=== PATIENT | male | born 1980 | race American Indian/Alaskan Native ===

== ENCOUNTER 2020-12-02 14:02 | Inpatient (IN) | payer OTHER ==
[2020-12-02 16:56] LABS: Basophils % (Auto) 0.3 % (0.0-1.8); Hematocrit 46.5 % (35.5-45.6); Hemoglobin 15.3 gm/dl (11.8-15.2); Lymphocytes # (Auto) 0.6 K/mm3 (1.2-5.4); Lymphocytes % (Auto) 4.2 % (13.4-35.0); Mean Corpuscular HGB Conc 33 % (32-34); Mean Corpuscular Volume 95 fl (84-94); Monocytes # (Auto) 0.8 K/mm3 (0.0-0.8); Monocytes % (Auto) 5.5 % (0.0-7.3); Platelet Count 279 K/mm3 (140-440); Red Cell Distribution Width 16.2 % (13.2-15.2)
[2020-12-02 16:57] LABS: Alanine Aminotransferase 66 units/L (7-56); Albumin 5.3 g/dL (3.9-5); BUN/Creatinine Ratio 9; Blood Urea Nitrogen 9 mg/dL (9-20); Calcium 10.9 mg/dL (8.4-10.2); Hemolysis Index 7
[2020-12-02] MEDS ORDERED: MORPHINE 4 MG/1 ML INJ IV ONE (20:11)
[2020-12-02] MEDS ORDERED: ONDANSETRON 4 MG/2 ML INJ IV ONE (20:11)
[2020-12-02] MEDS ORDERED: SODIUM CHLORIDE 0.9% 1000 ML 1,000 ML IV ONE (20:13)
--- NOTE | 2020-12-02 20:19 | Emergency Department Report ---
ED General Adult HPI - General Chief complaint: Abdominal Pain Stated complaint: PANCREATITIS Time Seen by Provider: 12/02/20 20:02 Source: patient Mode of arrival: Wheelchair Limitations: No Limitations - History of Present Illness Initial comments: 40-year-old male patient with history of recurrent pancreatitis presents to the emergency department with complaints of epigastric abdominal pain radiating to his back starting yesterday. Patient states symptoms are reminiscent of prior pancreatitis flareups requiring hospitalization. Patient endorses frequent alcohol consumption and admits that his alcohol intake has increased in recent weeks due to a recent in the family. His last alcohol ingestion was 2 days ago. Patient has never required hospitalization for alcohol withdrawal/delirium tremens. No medications prior to arrival. Denies fever, chills, nausea, vomiting, diarrhea, black/bloody stools, syncope, chest pain, shortness of breath. Denies all other complaints at this time. Severity scale (0 -10): 10 - Related Data Allergies Allergy/AdvReac Type Severity Reaction Status Date / Time No Known Allergies Allergy Unverified 12/02/20 15:49 ED Review of Systems ROS: Stated complaint: PANCREATITIS Other details as noted in HPI Other: GENERAL: Negative for fever, chills, weight change, anorexia, fatigue. ENT: Negative for ear pain, difficulty hearing, sore throat, nasal congestion, epistaxis. CARDIOVASCULAR: Negative for chest pain, palpitations, lower extremity swelling. PULMONARY: Negative for cough, dyspnea, wheezing, orthopnea, cyanosis. GASTROINTESTINAL: Positive for abdominal pain MUSCULOSKELETAL: Negative for joint pain, joint swelling, myalgias, back pain, neck pain. NEUROLOGICAL: Negative for headache, seizure, syncope, paresthesias, weakness. INTEGUMENTARY: Negative for erythema, rash, diaphoresis, laceration, ecchymosis. HEMATOLOGICAL: Negative for hemoptysis, hematemesis, hematochezia, hematuria. PSYCHIATRIC: Negative for hallucinations, suicidal ideation, homicidal ideation, anxiety, depression. ED Past Medical Hx - Past Medical History Previous Medical History?: Yes Additional medical history: pancreatitis - Surgical History Past Surgical History?: Yes Additional Surgical History: chest surgery for some fat tissue ED Physical Exam - General Limitations: No Limitations - Other Other exam information: General: Awake and alert. No acute distress. Head: Atraumatic, normocephalic. Eyes: EOMI. Pupils are equal and round. Normal sclera and conjunctiva. ENT: Oral mucosa is moist. Normal pharyngeal exam. Neck: Supple. No lymphadenopathy. Pulmonary: No respiratory distress. Clear to auscultation bilaterally. Cardiac: Tachycardic. Pulses are palpable and equal bilaterally. No lower extremity cyanosis or edema. Skin: Warm and dry. No rashes. Abdomen: Soft, non-protuberant. Diffuse abdominal tenderness most pronounced along the epigastric area without guarding, rigidity, or rebound. Bowel sounds are normal. No organomegaly or masses noted. Back: Normal alignment. No CVA tenderness. Extremities: Symmetrical. Full range of motion intact. Neurological: Alert and oriented, appropriately interactive, no focal deficits. Psych: Cooperative. Appropriate mood and affect. Speech is evenly metered. Thoughts are logically construed. ED Course Vital Signs 12/02/20 15:52 Temperature 98.2 F Pulse Rate 110 H Respiratory 20 Rate Blood Pressure 115/78 [Right] O2 Sat by Pulse 100 Oximetry ED Medical Decision Making - Lab Data Result diagrams: 12/02/20 16:14 12/02/20 16:14 - Radiology Data [facility] [address] [place] [address] Cat Scan Report Signed Patient: BELINDA RIVERA MR#: [id number] 06 : 1980 Acct:[id number] Age/Sex: 40 / M ADM Date: 12/02/20 Loc: ED Attending Dr: Ordering Physician: LINDA ZEE Date of Service: 12/02/20 Procedure(s): CT abdomen pelvis w con Accession Number(s): [id number] cc: LINDA ZEE CT ABDOMEN AND PELVIS WITH CONTRAST INDICATION / CLINICAL INFORMATION: elevated lipase/WBC/heart rate/LFT's. TECHNIQUE: Axial CT images were obtained through the abdomen and pelvis after IV contrast. All CT scans at this location are performed using CT dose reduction for ALARA by means of automated exposure control. COMPARISON: None available. FINDINGS: LOWER CHEST: No significant abnormality. LIVER: Scattered subcentimeter hypodensities are too small to characterize but likely represent cysts. GALLBLADDER: No significant abnormality. BILE DUCTS: No significant abnormality. PANCREAS: There is peripancreatic stranding without fluid collection or evid ence of necrosis. SPLEEN: No significant abnormality. ADRENALS: No significant abnormality. RIGHT KIDNEY / URETER: No significant abnormality. LEFT KIDNEY / URETER: No significant abnormality. STOMACH / SMALL BOWEL: No significant abnormality. COLON: No significant abnormality. APPENDIX: No significant abnormality. PERITONEUM: No free fluid. No free air. No fluid collection. LYMPH NODES: No significant adenopathy. AORTA / ARTERIES: Mild atherosclerotic calcification without acute abnormality. IVC / VEINS: No significant abnormality. URINARY BLADDER: No significant abnormality. REPRODUCTIVE ORGANS: No significant abnormality. ADDITIONAL FINDINGS: No significant abnormality SKELETAL SYSTEM: No significant abnormality. IMPRESSION: 1. Acute interstitial edematous pancreatitis. No peripancreatic fluid collection or necrosis. Signer Name: Haroon Camacho MD Signed: 12/02/2020 9:09 PM Workstation Name: [id number] Transcribed By: ISAIAH Dictated By: HAROON CAMACHO MD Electronically Authenticated By: HAROON CAMACHO MD Signed Date/Time: 12/02/202108 DD/ 04 TD/TT: - Medical Decision Making Differential diagnosis including but not limited to: pancreatitis, abscess, necrosis, cholecystitis, cholelithiasis, aortic aneurysm/dissection, alcohol withdrawal, delirium tremens, dehydration, electrolyte malady, hypoglycemia Patient with history of alcohol use presents to the emergency department with symptoms reminiscent of prior pancreatitis flareups. Tachycardic on arrival. Given IV fluids. Kept NPO. Labs show elevated white blood cell count of 14,000, lipase of 630. CT of the abdomen/pelvis without evidence of necrosis or abscess. Blood alcohol levels undetectable. No clinical evidence to suggest delirium tremens. Patient will be admitted to the hospital for IV hydration, bowel rest, and analgesia. Case discussed with hospitalist, who agrees to admit . Patient expressed understanding and is agreeable to plan of care. Critical care attestation.: If time is entered above; I have spent that time in minutes in the direct care of this critically ill patient, excluding procedure time. ED Disposition Clinical Impression: Acute pancreatitis Qualifiers: Pancreatitis type: alcohol induced Acute pancreatitis complication: unspecified Qualified Code(s): K85.20 - Alcohol induced acute pancreatitis without necrosis or infection Disposition: OP ADMIT IP TO THIS HOSP Is pt being admited?: Yes Does the pt Need Aspirin: No Condition: Serious Time of Disposition: 21:42
--- NOTE | 2020-12-02 21:13 | Cat Scan Report ---
CT ABDOMEN AND PELVIS WITH CONTRAST INDICATION / CLINICAL INFORMATION: elevated lipase/WBC/heart rate/LFT's. TECHNIQUE: Axial CT images were obtained through the abdomen and pelvis after IV contrast. All CT sc ans at this location are performed using CT dose reduction for ALARA by means of automated exposure c ontrol. COMPARISON: None available. FINDINGS: LOWER CHEST: No significant abnormality. LIVER: Scattered subcentimeter hypodensities are too small to characterize but likely represent cysts . GALLBLADDER: No significant abnormality. BILE DUCTS: No significant abnormality. PANCREAS: There is peripancreatic stranding without fluid collection or evidence of necrosis. SPLEEN: No significant abnormality. ADRENALS: No significant abnormality. RIGHT KIDNEY / URETER: No significant abnormality. LEFT KIDNEY / URETER: No significant abnormality. STOMACH / SMALL BOWEL: No significant abnormality. COLON: No significant abnormality. APPENDIX: No significant abnormality. PERITONEUM: No free fluid. No free air. No fluid collection. LYMPH NODES: No significant adenopathy. AORTA / ARTERIES: Mild atherosclerotic calcification without acute abnormality. IVC / VEINS: No significant abnormality. URINARY BLADDER: No significant abnormality. REPRODUCTIVE ORGANS: No significant abnormality. ADDITIONAL FINDINGS: No significant abnormality SKELETAL SYSTEM: No significant abnormality. IMPRESSION: 1. Acute interstitial edematous pancreatitis. No peripancreatic fluid collection or necrosis. Signer Name: Haoron Camacho MD Signed: 12/02/2020 9:09 PM Workstation Name: [id number]
[2020-12-02] MEDS ORDERED: MORPHINE 2 MG/1 ML INJ IV PRN (22:00)
[2020-12-02] MEDS ORDERED: ALBUTEROL 2.5 MG/3 ML NEBU IH PRN (22:00)
--- NOTE | 2020-12-02 22:08 | History and Physical Report ---
History of Present Illness Date of examination: 12/02/20 Date of admission: 12/02/20 Chief complaint: Abdominal pain History of present illness: 40-year-old male with history of alcohol abuse and recurrent pancreatitis was brought to the emergency room because of epigastric abdominal pain radiating to his back starting yesterday. Abdominal pain is sharp 10/10 in the back and the stomach area. Patient states symptoms are reminiscent of prior pancreatitis flareups requiring hospitalization. Patient endorses frequent alcohol consumption and admits that his alcohol intake has increased in recent weeks due to a recent in the family. His last alcohol ingestion was 2 days ago. Patient has never required hospitalization for alcohol withdrawal/delirium tr emens. No medications prior to arrival. Denies fever, chills, nausea, vomiting, diarrhea, black/bloody stools, syncope, chest pain, shortness of breath. In the emergency room patient lipase is 630. CT scan of the abdomen shows acute interstitial edematous pancreatitis. No peripancreatic fluid collection or necrosis. Please do the med rec when available Past History Past Medical History: other (Pancreatitis alcohol abuse) Medications and Allergies Allergies Allergy/AdvReac Type Severity Reaction Status Date / Time No Known Allergies Allergy Unverified 12/02/20 15:49 Active Meds: Active Medications Acetaminophen (Acetaminophen 325 Mg Tab) 650 mg PO Q4H PRN PRN Reason: Pain MILD(1-3)/Fever >100.5/ALVARES Albuterol (Albuterol 2.5 Mg/3 Ml Nebu) 2.5 mg IH Q4HRT PRN PRN Reason: Shortness Of Breath Famotidine (Famotidine 20 Mg/2 Ml Inj) 20 mg IV BID KIARA Heparin Sodium (Porcine) (Heparin 5,000 Unit/1 Ml Vial) 5,000 unit SUB-Q Q8HR KIARA Hydromorphone HCl (Hydromorphone 1 Mg/1 Ml Inj) 0.5 mg IV Q3H PRN PRN Reason: Pain , Severe (7-10) Sodium Chloride (Nacl 0.9% 1000 Ml) 1,000 mls @ 100 mls/hr IV DIRECT KIARA Piperacillin Sod/Tazobactam Sod (Zosyn/Ns 4.5gm/100ml) 4.5 gm in 100 mls @ 200 mls/hr IV Q8H KIARA; Protocol Folic Acid 1 mg/ Multivitamins /Minerals 10 ml/ Thiamine HCl 100 mg/ Sodium Chloride 1,000 mls @ 125 mls/hr IV .BY DURATION KIARA Sodium Chloride (Nacl 0.9% 1000 Ml) 1,000 mls @ 125 mls/hr IV .BY DURATION KIARA Morphine Sulfate (Morphine 2 Mg/1 Ml Inj) 2 mg IV Q4H PRN PRN Reason: Pain, Moderate (4-6) Ondansetron HCl (Ondansetron 4 Mg/2 Ml Inj) 4 mg IV Q8H PRN PRN Reason: Nausea And Vomiting Sodium Chloride (Sodium Chloride 0.9% 10 Ml Flush Syringe) 10 ml IV BID KIARA Sodium Chloride (Sodium Chloride 0.9% 10 Ml Flush Syringe) 10 ml IV PRN PRN PRN Reason: LINE FLUSH Review of Systems Gastrointestinal: abdominal pain, other Musculoskeletal: low back pain Exam - Constitutional Vitals: Temp Pulse Resp BP Pulse Ox 98.2 F 110 H 20 115/78 100 12/02/20 15:52 12/02/20 15:52 12/02/20 15:52 12/02/20 15:52 12/02/20 15:52 General appearance: Present: no acute distress, well-nourished - EENT Eyes: Present: PERRL ENT: hearing intact, clear oral mucosa - Neck Neck: Present: supple, normal ROM - Respiratory Respiratory effort: normal Respiratory: bilateral: CTA - Cardiovascular Heart Sounds: Present: S1 & S2. Absent: rub, click - Extremities Extremities: pulses symmetrical, No edema Peripheral Pulses: within normal limits - Abdominal General gastrointestinal: Present: soft, tender, non-distended, normal bowel sounds, other (iffuse abdominal tenderness most pronounced along the epigastric area without guarding, rigidity, or rebound) Male genitourinary: Present: normal - Integumentary Integumentary: Present: clear, warm, dry - Musculoskeletal Musculoskeletal: gait normal, strength equal bilaterally - Psychiatric Psychiatric: appropriate mood/affect, intact judgment & insight - Neurologic Neurologic: CNII-XII intact, moves all extremities Results - Labs CBC & Chem 7: 12/02/20 16:14 12/02/20 16:14 Labs: Laboratory Last Values WBC 14.1 K/mm3 (4.5-11.0) H 12/02/20 16:14 RBC 4.90 M/mm3 (3.65-5.03) 12/02/20 16:14 Hgb 15.3 gm/dl (11.8-15.2) H 12/02/20 16:14 Hct 46.5 % (35.5-45.6) H 12/02/20 16:14 MCV 95 fl (84-94) H 12/02/20 16:14 MCH 31 pg (28-32) 12/02/20 16:14 MCHC 33 % (32-34) 12/02/20 16:14 RDW 16.2 % (13.2-15.2) H 12/02/20 16:14 Plt Count 279 K/mm3 (140-440) 12/02/20 16:14 Lymph % (Auto) 4.2 % (13.4-35.0) L 12/02/20 16:14 Smith % (Auto) 5.5 % (0.0-7.3) 12/02/20 16:14 Eos % (Auto) 0.0 % (0.0-4.3) 12/02/20 16:14 Baso % (Auto) 0.3 % (0.0-1.8) 12/02/20 16:14 Lymph # (Auto) 0.6 K/mm3 (1.2-5.4) L 12/02/20 16:14 Smith # (Auto) 0.8 K/mm3 (0.0-0.8) 12/02/20 16:14 Eos # (Auto) 0.0 K/mm3 (0.0-0.4) 12/02/20 16:14 Baso # (Auto) 0.0 K/mm3 (0.0-0.1) 12/02/20 16:14 Seg Neutrophils % 90.0 % (40.0-70.0) H 12/02/20 16:14 Seg Neutrophils # 12.7 K/mm3 (1.8-7.7) H 12/02/20 16:14 Sodium 142 mmol/L (137-145) 12/02/20 16:14 Potassium 3.8 mmol/L (3.6-5.0) 12/02/20 16:14 Chloride 101.9 mmol/L (98-107) 12/02/20 16:14 Carbon Dioxide 22 mmol/L (22-30) 12/02/20 16:14 Anion Gap 22 mmol/L 12/02/20 16:14 BUN 9 mg/dL (9-20) 12/02/20 16:14 Creatinine 1.0 mg/dL (0.8-1.3) 12/02/20 16:14 Estimated GFR > 60 ml/min 12/02/20 16:14 BUN/Creatinine Ratio 9 % 12/02/20 16:14 Glucose 174 mg/dL (75-100) H 12/02/20 16:14 Calcium 10.9 mg/dL (8.4-10.2) H 12/02/20 16:14 Phosphorus 3.10 mg/dL (2.5-4.5) 12/02/20 20:11 Magnesium 2.60 mg/dL (1.7-2.3) H 12/02/20 20:11 Total Bilirubin 0.90 mg/dL (0.1-1.2) 12/02/20 16:14 AST 47 units/L (5-40) H 12/02/20 16:14 ALT 66 units/L (7-56) H 12/02/20 16:14 Alkaline Phosphatase 82 units/L (35-129) 12/02/20 16:14 Total Protein 8.5 g/dL (6.3-8.2) H 12/02/20 16:14 Albumin 5.3 g/dL (3.9-5) H 12/02/20 16:14 Albumin/Globulin Ratio 1.7 % 12/02/20 16:14 Lipase 630 units/L (13-60) H 12/02/20 16:14 Plasma/Serum Alcohol < 0.01 % (0-0.07) 12/02/20 20:11 - Imaging and Cardiology CT scan - abdomen: report reviewed Assessment and Plan VTE prophylaxis?: Chemical Plan of care discussed with patient/family: Yes - Patient Problems (1) Acute pancreatitis Current Visit: Yes Status: Acute Qualifiers: Pancreatitis type: alcohol induced Acute pancreatitis complication: unspecified Qualified Code(s): K85.20 - Alcohol induced acute pancreatitis without necrosis or infection Plan to address problem: Admit the patient to the medical floor. Nothing by mouth. Normal saline at the rate of 100 cc/h. Pepcid 20 mg IV every 12 hours. Zofran 4 mg IV every 6 hours as needed. Morphine 2 mg IV every 4 hours as needed. Will consult GI for evaluation. Recheck CBC CMP in the morning (2) Alcohol abuse Current Visit: Yes Status: Acute Plan to address problem: We counseled the patient regarding quit drinking. We put the patient on banana bag thiamine and folic acid. (3) DVT prophylaxis Current Visit: Yes Status: Acute Plan to address problem: Heparin 5000 units subcu every 8 hours for DVT prophylaxis. Pepcid 20 mg IV every 12 hours for GI prophylaxis. Patient is a full code
[2020-12-02] MEDS ORDERED: 1: FOLIC ACID 1 MG, MULTIPLE VITAMIN INJ, ADULT 10 ML, THIAMINE 100 MG in SODIUM CHLORID IV SCH (23:00)
[2020-12-02] MEDS: HEPARIN 5,000 UNIT/1 ML VIAL SUB-Q SCH (23:34)
[2020-12-02] MEDS: FAMOTIDINE 20 MG/2 ML INJ IV SCH (23:34)
[2020-12-02] MEDS: PIPERACIL/TAZOBACTA 4.5/NS 100 4.5 GM/100 ML VIAL IV SCH (23:34)
[2020-12-02] MEDS: HYDROmorphone 1 MG/1 ML INJ IV PRN (23:45)
[2020-12-03] MEDS: THIAMINE 100 MG, FOLIC ACID 1 MG, MULTIPLE VITAMIN INJ, ADULT 10 ML in SODIUM CHLORIDE ... IV SCH ×2 (01:18→22:05)
[2020-12-03] MEDS: HYDROmorphone 1 MG/1 ML INJ IV PRN ×3 (03:20→22:05)
[2020-12-03 05:20] LABS: Hematocrit 41.2 % (35.5-45.6); Hemoglobin 13.3 gm/dl (11.8-15.2); Mean Corpuscular HGB Conc 32 % (32-34); Mean Corpuscular Volume 95 fl (84-94); Platelet Count 242 K/mm3 (140-440); Red Blood Count 4.33 M/mm3 (3.65-5.03); Red Cell Distribution Width 15.8 % (13.2-15.2)
[2020-12-03 05:32] LABS: Alanine Aminotransferase 48 units/L (7-56); Albumin 4.3 g/dL (3.9-5); BUN/Creatinine Ratio 9; Blood Urea Nitrogen 8 mg/dL (9-20); Calcium 8.6 mg/dL (8.4-10.2); Hemolysis Index 10
[2020-12-03] MEDS: HEPARIN 5,000 UNIT/1 ML VIAL SUB-Q SCH ×3 (05:50→22:06)
[2020-12-03 06:05] LABS: Total Cells Counted 100
[2020-12-03 06:06] LABS: Anisocytosis 1+; Platelet Estimate Consistent w Auto; Stomatocytes 1+
[2020-12-03] MEDS: PIPERACIL/TAZOBACTA 4.5/NS 100 4.5 GM/100 ML VIAL IV SCH ×3 (08:14→23:43)
[2020-12-03] MEDS: ACETAMINOPHEN 325 MG TAB PO PRN ×2 (09:27→18:55)
[2020-12-03] MEDS: FAMOTIDINE 20 MG/2 ML INJ IV SCH ×2 (09:31→22:06)
--- NOTE | 2020-12-03 11:45 | Ultrasound Report ---
ULTRASOUND ABDOMEN, COMPLETE INDICATION: Acute pancreatitis/rule out gallbladder disease COMPARISON: CT one day prior. FINDINGS: Pancreas: Normal. Abdominal Aorta: Normal. IVC: Normal. Liver: Normal. Gallbladder: Normal. Bile ducts: Normal. Common Bile Duct measures 3-4 mm. Right Kidney: Normal. Left Kidney: Normal. Spleen: Normal. Free fluid: None. Additional Findings: None. IMPRESSION: 1. No sonographic abnormality of the abdomen. Signer Name: Tyrese Nazario MD Signed: 12/03/2020 11:40 AM Workstation Name: [id number]
--- NOTE | 2020-12-03 12:37 | Gastroenterology Consultation ---
History of Present Illness - Reason for Consult Consult date: 12/03/20 pancreatitis Requesting physician: BERE DOSS - History of Present Illness This is a 40 yo male with pmh of alcohol abuse and prior pancreatitis presenting to the ED for epigastric pain. Reports having epigastric pain yesterday morning radiating to his back associated with one episode fo vomiting. He had recent family with his cousin last week and had several days of alcohol use with last intake on Wednesday. No blood in the stools, melena, or diarrhea. He states he had two hospitalizations in the past at [place] and [facility] for pancreatitis. This feels similar to his prior attacks. Was told to quit alcohol. In the emergency room patient lipase is 630. CT scan of the abdomen shows acute interstitial edematous pancreatitis. No peripancreatic fluid collection or necrosis. Medication list reviewed. Past History Past Medical History: other (Pancreatitis alcohol abuse) Medications and Allergies Allergies Allergy/AdvReac Type Severity Reaction Status Date / Time No Known Allergies Allergy Verified 12/02/20 22:11 Active Meds: Active Medications Acetaminophen (Acetaminophen 325 Mg Tab) 650 mg PO Q4H PRN PRN Reason: Pain MILD(1-3)/Fever >100.5/ALVARES Last Admin: 12/03/20 09:27 Dose: 650 mg Documented by: Albuterol (Albuterol 2.5 Mg/3 Ml Nebu) 2.5 mg IH Q4HRT PRN PRN Reason: Shortness Of Breath Famotidine (Famotidine 20 Mg/2 Ml Inj) 20 mg IV BID [facility] Last Admin: 12/03/20 09:31 Dose: 20 mg Documented by: Heparin Sodium (Porcine) (Heparin 5,000 Unit/1 Ml Vial) 5,000 unit SUB-Q Q8HR [facility] Last Admin: 12/03/20 05:50 Dose: 5,000 unit Documented by: Hydromorphone HCl (Hydromorphone 1 Mg/1 Ml Inj) 0.5 mg IV Q3H PRN PRN Reason: Pain , Severe (7-10) Last Admin: 12/03/20 05:50 Dose: 0.5 mg Documented by: Sodium Chloride (Nacl 0.9% 1000 Ml) 1,000 mls @ 100 mls/hr IV DIRECT KIARA Piperacillin Sod/Tazobactam Sod (Zosyn/Ns 4.5gm/100ml) 4.5 gm in 100 mls @ 200 mls/hr IV Q8H [facility]; Protocol Last Admin: 12/03/20 08:14 Dose: 200 mls/hr Documented by: Thiamine HCl 100 mg/ Folic Acid 1 mg/ Multivitamins/Minerals 10 ml/ Sodium Chloride 1,011.2 mls @ 125 mls/hr IV Q24H [facility] Last Admin: 12/03/20 01:18 Dose: 125 mls/hr Documented by: Morphine Sulfate (Morphine 2 Mg/1 Ml Inj) 2 mg IV Q4H PRN PRN Reason: Pain, Moderate (4-6) Ondansetron HCl (Ondansetron 4 Mg/2 Ml Inj) 4 mg IV Q8H PRN PRN Reason: Nausea And Vomiting Sodium Chloride (Sodium Chloride 0.9% 10 Ml Flush Syringe) 10 ml IV BID [facility] Last Admin: 12/02/20 23:45 Dose: 10 ml Documented by: Sodium Chloride (Sodium Chloride 0.9% 10 Ml Flush Syringe) 10 ml IV PRN PRN PRN Reason: LINE FLUSH Review of Systems - Review of Systems All systems: negative Constitutional: no weight loss, no weight gain, no fever, no chills Cardiovascular: no chest pain Gastrointestinal: abdominal pain, nausea, vomiting, no diarrhea, no constipation, no change in bowel habits, no melena, no hematochezia Neurological: weakness Psychiatric: anxiety Endocrine: no cold intolerance Hematologic/Lymphatic: no easy bruising Allergic/Immunologic: no wheezing Exam - Constitutional Vital Signs: Temp Pulse Resp BP Pulse Ox 98.2 F 110 H 20 115/78 100 12/02/20 15:52 12/02/20 15:52 12/02/20 15:52 12/02/20 15:52 12/02/20 21:51 General appearance: no acute distress - EENT Eyes: EOM intact ENT: hearing intact - Respiratory Respiratory effort: normal - Cardiovascular Rhythm: regular Heart Sounds: Present: S1 & S2 - Gastrointestinal General gastrointestinal: Present: soft, tender, non-distended, normal bowel sounds - Integumentary Integumentary: Present: clear, warm - Neurologic Neurological: alert and oriented x3 - Psychiatric Psychiatric: appropriate mood/affect - Labs CBC & Chem 7: 12/03/20 03:58 12/03/20 03:58 Lab Results: Laboratory Results - last 24 hr 12/02/20 12/02/20 12/02/20 16:14 16:14 20:11 WBC 14.1 H RBC 4.90 Hgb 15.3 H Hct 46.5 H MCV 95 H MCH 31 MCHC 33 RDW 16.2 H Plt Count 279 Lymph % (Auto) 4.2 L Tift % (Auto) 5.5 Eos % (Auto) 0.0 Baso % (Auto) 0.3 Lymph # (Auto) 0.6 L Tift # (Auto) 0.8 Eos # (Auto) 0.0 Baso # (Auto) 0.0 Add Manual Diff Total Counted Seg Neutrophils % 90.0 H Seg Neuts % (Manual) Lymphocytes % (Manual) Monocytes % (Manual) Nucleated RBC % Seg Neutrophils # 12.7 H Seg Neutrophils # Man Band Neutrophils # Lymphocytes # (Manual) Abs React Lymphs (Man) Monocytes # (Manual) Eosinophils # (Manual) Basophils # (Manual) Metamyelocytes # Myelocytes # Promyelocytes # Blast Cells # WBC Morphology Hypersegmented Neuts Hyposegmented Neuts Hypogranular Neuts Smudge Cells Toxic Granulation Toxic Vacuolation Dohle Bodies Pelger-Huet Anomaly [place] Rods Platelet Estimate Clumped Platelets Plt Clumps, EDTA Large Platelets Giant Platelets Platelet Satelliting Plt Morphology Comment RBC Morphology Dimorphic RBCs Polychromasia Hypochromasia Poikilocytosis Anisocytosis Microcytosis Macrocytosis Spherocytes Pappenheimer Bodies Sickle Cells Target Cells Tear Drop Cells Ovalocytes Stomatocytes Helmet Cells [place] Bodies [place] Rings [place] Cells Bite Cells Crenated Cell Elliptocytes Acanthocytes (Spur) Rouleaux Hemoglobin C Crystals Schistocytes Malaria parasites Yoel Bodies Hem Pathologist Commnt Sodium 142 Potassium 3.8 Chloride 101.9 Carbon Dioxide 22 Anion Gap 22 BUN 9 Creatinine 1.0 Estimated GFR > 60 BUN/Creatinine Ratio 9 Glucose 174 H Calcium 10.9 H Phosphorus 3.10 Magnesium 2.60 H Total Bilirubin 0.90 AST 47 H ALT 66 H Alkaline Phosphatase 82 Total Protein 8.5 H Albumin 5.3 H Albumin/Globulin Ratio 1.7 Lipase 630 H Plasma/Serum Alcohol 12/02/20 12/03/20 12/03/20 20:11 03:58 03:58 WBC 13.9 H RBC 4.33 Hgb 13.3 Hct 41.2 MCV 95 H MCH 31 MCHC 32 RDW 15.8 H Plt Count 242 Lymph % (Auto) Tift % (Auto) Eos % (Auto) Baso % (Auto) Lymph # (Auto) Tift # (Auto) Eos # (Auto) Baso # (Auto) Add Manual Diff Complete Total Counted 100 Seg Neutrophils % Seg Neuts % (Manual) 91.0 H Lymphocytes % (Manual) 3.0 L Monocytes % (Manual) 6.0 Nucleated RBC % Not Reportable Seg Neutrophils # Seg Neutrophils # Man 12.6 H Band Neutrophils # 0.0 Lymphocytes # (Manual) 0.4 L Abs React Lymphs (Man) 0.0 Monocytes # (Manual) 0.8 Eosinophils # (Manual) 0.0 Basophils # (Manual) 0.0 Metamyelocytes # 0.0 Myelocytes # 0.0 Promyelocytes # 0.0 Blast Cells # 0.0 WBC Morphology Not Reportable Hypersegmented Neuts Not Reportable Hyposegmented Neuts Not Reportable Hypogranular Neuts Not Reportable Smudge Cells Not Reportable Toxic Granulation Not Reportable Toxic Vacuolation Not Reportable Dohle Bodies Not Reportable Pelger-Huet Anomaly Not Reportable [place] Rods Not Reportable Platelet Estimate Consistent w auto Clumped Platelets Not Reportable Plt Clumps, EDTA Not Reportable Large Platelets Not Reportable Giant Platelets Not Reportable Platelet Satelliting Not Reportable Plt Morphology Comment Not Reportable RBC Morphology Not Reportable Dimorphic RBCs Not Reportable Polychromasia Not Reportable Hypochromasia Not Reportable Poikilocytosis Not Reportable Anisocytosis 1+ Microcytosis Not Reportable Macrocytosis Not Reportable Spherocytes Not Reportable Pappenheimer Bodies Not Reportable Sickle Cells Not Reportable Target Cells Not Reportable Tear Drop Cells Not Reportable Ovalocytes Not Reportable Stomatocytes 1+ Helmet Cells Not Reportable Dave-[place] Bodies Not Reportable [place] Rings Not Reportable [place] Cells Not Reportable Bite Cells Not Reportable Crenated Cell Not Reportable Elliptocytes Not Reportable Acanthocytes (Spur) Not Reportable Rouleaux Not Reportable Hemoglobin C Crystals Not Reportable Schistocytes Not Reportable Malaria parasites Not Reportable Yoel Bodies Not Reportable Hem Pathologist Commnt No Sodium 139 Potassium 3.5 L Chloride 103.8 Carbon Dioxide 26 Anion Gap 13 BUN 8 L Creatinine 0.9 Estimated GFR > 60 BUN/Creatinine Ratio 9 Glucose 111 H Calcium 8.6 D Phosphorus Magnesium Total Bilirubin 0.90 AST 30 ALT 48 Alkaline Phosphatase 67 Total Protein 7.3 Albumin 4.3 Albumin/Globulin Ratio 1.4 Lipase Plasma/Serum Alcohol < 0.01 - Imaging CT Scan: report reviewed Assessment and Plan This is a 40 yo male with pmh of alcohol abuse and prior pancreatitis admitted with acute pancreatitis. # Acute pancreatitis - likely alcohol induced - no signs of gallstones on CT - abdominal US with no gallstones and normal CBD - initially mild elevation of liver enzymes, likely due to alcohol and trended down. - no signs of necrosis on CT - HD stable. Rec - medical management for pancreatitis - IVF resuscitation - NPO - pain control. - strongly advised on alcohol cessation - monitor for signs of alcohol withdrawal. - Patient Problems (1) Acute pancreatitis Current Visit: Yes Status: Acute Qualifiers: Pancreatitis type: alcohol induced Acute pancreatitis complication: unspecified Qualified Code(s): K85.20 - Alcohol induced acute pancreatitis without necrosis or infection
--- NOTE | 2020-12-03 16:02 | Progress Note ---
Assessment and Plan Assessment and plan: 1) Acute pancreatitis Current Visit: Yes Status: Acute Admit the patient to the medical floor. Nothing by mouth. Normal saline at the rate of 100 cc/h. Pepcid 20 mg IV every 12 hours. Zofran 4 mg IV every 6 hours as needed. Morphine 2 mg IV every 4 hours as needed. Will consult GI for evaluation. Recheck CBC CMP in the morning (2) Alcohol abuse Current Visit: Yes Status: Acute We counseled the patient regarding quit drinking. We put the patient on banana bag thiamine and folic acid. (3) DVT prophylaxis Current Visit: Yes Status: Acute Heparin 5000 units subcu every 8 hours for DVT prophylaxis. Pepcid 20 mg IV every 12 hours for GI prophylaxis. Patient is a full code History Interval history: I have Seen and examined in ICU awaiting bed assignment Patient's chart and medications reviewed No new events reported by the nursing staff Patient was admitted with acute pancreatitis, Probably secondary to alcohol intake Vital signs noted Hospitalist Physical - Constitutional Vitals: Temp Pulse Resp BP Pulse Ox 98.2 F 110 H 20 115/78 100 12/02/20 15:52 12/02/20 15:52 12/02/20 15:52 12/02/20 15:52 12/02/20 21:51 General appearance: Present: no acute distress, well-nourished - EENT Eyes: Present: PERRL, EOM intact - Neck Neck: Present: supple, normal ROM - Respiratory Respiratory effort: normal Respiratory: bilateral: diminished, negative: rales, rhonchi, wheezing - Cardiovascular Rhythm: regular Heart Sounds: Present: S1 & S2 - Extremities Extremities: no ischemia, No edema - Abdominal General gastrointestinal: soft, non-tender, non-distended, distended, normal bowel sounds - Integumentary Integumentary: Present: clear, warm - Psychiatric Psychiatric: appropriate mood/affect, cooperative - Neurologic Neurologic: CNII-XII intact, moves all extremities Results - Labs CBC & Chem 7: 12/03/20 03:58 12/03/20 03:58 Labs: Laboratory Last Values WBC 13.9 K/mm3 (4.5-11.0) H 12/03/20 03:58 RBC 4.33 M/mm3 (3.65-5.03) 12/03/20 03:58 Hgb 13.3 gm/dl (11.8-15.2) 12/03/20 03:58 Hct 41.2 % (35.5-45.6) 12/03/20 03:58 MCV 95 fl (84-94) H 12/03/20 03:58 MCH 31 pg (28-32) 12/03/20 03:58 MCHC 32 % (32-34) 12/03/20 03:58 RDW 15.8 % (13.2-15.2) H 12/03/20 03:58 Plt Count 242 K/mm3 (140-440) 12/03/20 03:58 Lymph % (Auto) 4.2 % (13.4-35.0) L 12/02/20 16:14 Lucas % (Auto) 5.5 % (0.0-7.3) 12/02/20 16:14 Eos % (Auto) 0.0 % (0.0-4.3) 12/02/20 16:14 Baso % (Auto) 0.3 % (0.0-1.8) 12/02/20 16:14 Lymph # (Auto) 0.6 K/mm3 (1.2-5.4) L 12/02/20 16:14 Lucas # (Auto) 0.8 K/mm3 (0.0-0.8) 12/02/20 16:14 Eos # (Auto) 0.0 K/mm3 (0.0-0.4) 12/02/20 16:14 Baso # (Auto) 0.0 K/mm3 (0.0-0.1) 12/02/20 16:14 Add Manual Diff Complete 12/03/20 03:58 Total Counted 100 12/03/20 03:58 Seg Neutrophils % 90.0 % (40.0-70.0) H 12/02/20 16:14 Seg Neuts % (Manual) 91.0 % (40.0-70.0) H 12/03/20 03:58 Lymphocytes % (Manual) 3.0 % (13.4-35.0) L 12/03/20 03:58 Monocytes % (Manual) 6.0 % (0.0-7.3) 12/03/20 03:58 Nucleated RBC % Not Reportable 12/03/20 03:58 Seg Neutrophils # 12.7 K/mm3 (1.8-7.7) H 12/02/20 16:14 Seg Neutrophils # Man 12.6 K/mm3 (1.8-7.7) H 12/03/20 03:58 Band Neutrophils # 0.0 K/mm3 12/03/20 03:58 Lymphocytes # (Manual) 0.4 K/mm3 (1.2-5.4) L 12/03/20 03:58 Abs React Lymphs (Man) 0.0 K/mm3 12/03/20 03:58 Monocytes # (Manual) 0.8 K/mm3 (0.0-0.8) 12/03/20 03:58 Eosinophils # (Manual) 0.0 K/mm3 (0.0-0.4) 12/03/20 03:58 Basophils # (Manual) 0.0 K/mm3 (0.0-0.1) 12/03/20 03:58 Metamyelocytes # 0.0 K/mm3 12/03/20 03:58 Myelocytes # 0.0 K/mm3 12/03/20 03:58 Promyelocytes # 0.0 K/mm3 12/03/20 03:58 Blast Cells # 0.0 K/mm3 12/03/20 03:58 WBC Morphology Not Reportable 12/03/20 03:58 Hypersegmented Neuts Not Reportable 12/03/20 03:58 Hyposegmented Neuts Not Reportable 12/03/20 03:58 Hypogranular Neuts Not Reportable 12/03/20 03:58 Smudge Cells Not Reportable 12/03/20 03:58 Toxic Granulation Not Reportable 12/03/20 03:58 Toxic Vacuolation Not Reportable 12/03/20 03:58 Dohle Bodies Not Reportable 12/03/20 03:58 Pelger-Huet Anomaly Not Reportable 12/03/20 03:58 Collette Rods Not Reportable 12/03/20 03:58 Platelet Estimate Consistent w auto 12/03/20 03:58 Clumped Platelets Not Reportable 12/03/20 03:58 Plt Clumps, EDTA Not Reportable 12/03/20 03:58 Large Platelets Not Reportable 12/03/20 03:58 Giant Platelets Not Reportable 12/03/20 03:58 Platelet Satelliting Not Reportable 12/03/20 03:58 Plt Morphology Comment Not Reportable 12/03/20 03:58 RBC Morphology Not Reportable 12/03/20 03:58 Dimorphic RBCs Not Reportable 12/03/20 03:58 Polychromasia Not Reportable 12/03/20 03:58 Hypochromasia Not Reportable 12/03/20 03:58 Poikilocytosis Not Reportable 12/03/20 03:58 Anisocytosis 1+ 12/03/20 03:58 Microcytosis Not Reportable 12/03/20 03:58 Macrocytosis Not Reportable 12/03/20 03:58 Spherocytes Not Reportable 12/03/20 03:58 Pappenheimer Bodies Not Reportable 12/03/20 03:58 Sickle Cells Not Reportable 12/03/20 03:58 Target Cells Not Reportable 12/03/20 03:58 Tear Drop Cells Not Reportable 12/03/20 03:58 Ovalocytes Not Reportable 12/03/20 03:58 Stomatocytes 1+ 12/03/20 03:58 Helmet Cells Not Reportable 12/03/20 03:58 [place] Bodies Not Reportable 12/03/20 03:58 [place] Rings Not Reportable 12/03/20 03:58 [place] Cells Not Reportable 12/03/20 03:58 Bite Cells Not Reportable 12/03/20 03:58 Crenated Cell Not Reportable 12/03/20 03:58 Elliptocytes Not Reportable 12/03/20 03:58 Acanthocytes (Spur) Not Reportable 12/03/20 03:58 Rouleaux Not Reportable 12/03/20 03:58 Hemoglobin C Crystals Not Reportable 12/03/20 03:58 Schistocytes Not Reportable 12/03/20 03:58 Malaria parasites Not Reportable 12/03/20 03:58 Yoel Bodies Not Reportable 12/03/20 03:58 Hem Pathologist Commnt No 12/03/20 03:58 Sodium 139 mmol/L (137-145) 12/03/20 03:58 Potassium 3.5 mmol/L (3.6-5.0) L 12/03/20 03:58 Chloride 103.8 mmol/L (98-107) 12/03/20 03:58 Carbon Dioxide 26 mmol/L (22-30) 12/03/20 03:58 Anion Gap 13 mmol/L 12/03/20 03:58 BUN 8 mg/dL (9-20) L 12/03/20 03:58 Creatinine 0.9 mg/dL (0.8-1.3) 12/03/20 03:58 Estimated GFR > 60 ml/min 12/03/20 03:58 BUN/Creatinine Ratio 9 % 12/03/20 03:58 Glucose 111 mg/dL (75-100) H 12/03/20 03:58 Calcium 8.6 mg/dL (8.4-10.2) D 12/03/20 03:58 Phosphorus 3.10 mg/dL (2.5-4.5) 12/02/20 20:11 Magnesium 2.60 mg/dL (1.7-2.3) H 12/02/20 20:11 Total Bilirubin 0.90 mg/dL (0.1-1.2) 12/03/20 03:58 AST 30 units/L (5-40) 12/03/20 03:58 ALT 48 units/L (7-56) 12/03/20 03:58 Alkaline Phosphatase 67 units/L (35-129) 12/03/20 03:58 Total Protein 7.3 g/dL (6.3-8.2) 12/03/20 03:58 Albumin 4.3 g/dL (3.9-5) 12/03/20 03:58 Albumin/Globulin Ratio 1.4 % 12/03/20 03:58 Lipase 630 units/L (13-60) H 12/02/20 16:14 Plasma/Serum Alcohol < 0.01 % (0-0.07) 12/02/20 20:11 Active Medications - Current Medications Current Medications: Generic Name Dose Route Start Last Admin Trade Name Freq PRN Reason Stop Dose Admin Acetaminophen 650 mg 12/02/20 22:00 12/03/20 09:27 Acetaminophen 325 Mg Tab PO 650 mg Q4H PRN Administration Pain MILD(1-3)/Fever >100.5/ALVARES Albuterol 2.5 mg 12/02/20 22:00 Albuterol 2.5 Mg/3 Ml Nebu IH Q4HRT PRN Shortness Of Breath Famotidine 20 mg 12/02/20 22:00 12/03/20 09:31 Famotidine 20 Mg/2 Ml Inj IV 20 mg BID KIARA Administration Heparin Sodium (Porcine) 5,000 unit 12/02/20 22:00 12/03/20 05:50 Heparin 5,000 Unit/1 Ml Vial SUB-Q 5,000 unit Q8HR KIARA Administration Hydromorphone HCl 0.5 mg 12/02/20 22:00 12/03/20 05:50 Hydromorphone 1 Mg/1 Ml Inj IV 0.5 mg Q3H PRN Administration Pain , Severe (7-10) Sodium Chloride 1,000 mls @ 100 mls/hr 12/02/20 22:00 Nacl 0.9% 1000 Ml IV DIRECT KIARA Piperacillin Sod/Tazobactam Sod 4.5 gm in 100 mls @ 200 mls/hr 12/02/20 23:00 12/03/20 15:53 Zosyn/Ns 4.5gm/100ml IV 200 mls/hr Q8H KIARA Administration Protocol Thiamine HCl 100 mg/ Folic 1,011.2 mls @ 125 mls/hr 12/02/20 22:30 12/03/20 01:18 Acid 1 mg/ Multivitamins/ IV 125 mls/hr Minerals 10 ml/ Sodium Q24H KIARA Administration Chloride Morphine Sulfate 2 mg 12/02/20 22:00 Morphine 2 Mg/1 Ml Inj IV Q4H PRN Pain, Moderate (4-6) Ondansetron HCl 4 mg 12/02/20 22:00 Ondansetron 4 Mg/2 Ml Inj IV Q8H PRN Nausea And Vomiting Sodium Chloride 10 ml 12/02/20 22:00 12/03/20 10:40 Sodium Chloride 0.9% 10 Ml Flush Syringe IV 10 ml BID KIARA Administration Sodium Chloride 10 ml 12/02/20 22:00 Sodium Chloride 0.9% 10 Ml Flush Syringe IV PRN PRN LINE FLUSH
[2020-12-03] MEDS: ONDANSETRON 4 MG/2 ML INJ IV PRN (17:30)
[2020-12-03] MEDS: SODIUM CHLORIDE 0.9% 1000 ML 1,000 ML IV SCH (17:30)
[2020-12-04] MEDS: SODIUM CHLORIDE 0.9% 1000 ML 1,000 ML IV SCH ×3 (02:02→20:21)
[2020-12-04] MEDS: HYDROmorphone 1 MG/1 ML INJ IV PRN ×2 (02:02→06:59)
[2020-12-04] MEDS: HEPARIN 5,000 UNIT/1 ML VIAL SUB-Q SCH ×3 (06:55→22:30)
[2020-12-04] MEDS: PIPERACIL/TAZOBACTA 4.5/NS 100 4.5 GM/100 ML VIAL IV SCH ×3 (06:55→23:26)
--- NOTE | 2020-12-04 08:10 | Progress Note ---
Assessment and Plan Assessment and plan: --Acute pancreatitis Current Visit: Yes Status: Acute Well managed with IV fluids, n.p.o. status, IV Protonix Closely monitor transaminases and lipase levels GI evaluation and recommendations noted and appreciated If lipase level and symptoms are improving, may start clear liquids And advance as tolerated --SIRS without infectious process; Current Visit: Yes Status: Acute Tachycardia, leukocytosis, fever Treat underlying cause acute pancreatitis Closely monitor --Chronic alcohol abuse; Current Visit: Yes Status: Acute Thiamine folic acid, IV fluids, multivitamins Strongly advised to quit alcohol intake Recommend alcohol rehabilitation, and alcohol Anonymous support. --Alcoholic hepatitis; present on admission Current Visit: Yes Status: Acute Transaminases trending down GI following, closely monitor --Alcohol withdrawal symptoms; Patient does not have any withdrawal symptoms at this point. Closely monitor, initiate CIWA protocol as needed Again strongly advised to quit alcohol intake --DVT prophylaxis Current Visit: Yes Status: Acute Subcu heparin We will closely monitor patient and adjust management as needed Follow GI evaluation and recommendations 12/04/2020; Patient's LFTs trending down to normal levels today Monitor electrolytes and adjust as needed Closely monitor alcohol withdrawal symptoms Initiate CIWA protocol if needed GI following History Interval history: Seen and examined this morning Patient's chart and medications reviewed No new events reported by the nursing Vital signs noted Hospitalist Physical - Constitutional Vitals: Temp Pulse Resp BP Pulse Ox 99.2 F 70 15 120/82 100 12/03/20 22:34 12/03/20 22:34 12/03/20 22:34 12/03/20 22:34 12/03/20 22:34 General appearance: Present: no acute distress, well-nourished - EENT Eyes: Present: PERRL, EOM intact - Neck Neck: Present: supple, normal ROM - Respiratory Respiratory effort: normal Respiratory: bilateral: diminished, rhonchi, negative: rales, wheezing - Cardiovascular Rhythm: regular Heart Sounds: Present: S1 & S2 - Extremities Extremities: no ischemia, No edema - Abdominal General gastrointestinal: soft, non-tender, non-distended, normal bowel sounds - Integumentary Integumentary: Present: clear, warm - Psychiatric Psychiatric: appropriate mood/affect, cooperative - Neurologic Neurologic: CNII-XII intact, moves all extremities Results - Labs CBC & Chem 7: 12/04/20 08:50 12/05/20 14:04 Labs: Laboratory Last Values WBC 13.9 K/mm3 (4.5-11.0) H 12/03/20 03:58 RBC 4.33 M/mm3 (3.65-5.03) 12/03/20 03:58 Hgb 13.3 gm/dl (11.8-15.2) 12/03/20 03:58 Hct 41.2 % (35.5-45.6) 12/03/20 03:58 MCV 95 fl (84-94) H 12/03/20 03:58 MCH 31 pg (28-32) 12/03/20 03:58 MCHC 32 % (32-34) 12/03/20 03:58 RDW 15.8 % (13.2-15.2) H 12/03/20 03:58 Plt Count 242 K/mm3 (140-440) 12/03/20 03:58 Lymph % (Auto) 4.2 % (13.4-35.0) L 12/02/20 16:14 [place] % (Auto) 5.5 % (0.0-7.3) 12/02/20 16:14 Eos % (Auto) 0.0 % (0.0-4.3) 12/02/20 16:14 Baso % (Auto) 0.3 % (0.0-1.8) 12/02/20 16:14 Lymph # (Auto) 0.6 K/mm3 (1.2-5.4) L 12/02/20 16:14 [place] # (Auto) 0.8 K/mm3 (0.0-0.8) 12/02/20 16:14 Eos # (Auto) 0.0 K/mm3 (0.0-0.4) 12/02/20 16:14 Baso # (Auto) 0.0 K/mm3 (0.0-0.1) 12/02/20 16:14 Add Manual Diff Complete 12/03/20 03:58 Total Counted 100 12/03/20 03:58 Seg Neutrophils % 90.0 % (40.0-70.0) H 12/02/20 16:14 Seg Neuts % (Manual) 91.0 % (40.0-70.0) H 12/03/20 03:58 Lymphocytes % (Manual) 3.0 % (13.4-35.0) L 12/03/20 03:58 Monocytes % (Manual) 6.0 % (0.0-7.3) 12/03/20 03:58 Nucleated RBC % Not Reportable 12/03/20 03:58 Seg Neutrophils # 12.7 K/mm3 (1.8-7.7) H 12/02/20 16:14 Seg Neutrophils # Man 12.6 K/mm3 (1.8-7.7) H 12/03/20 03:58 Band Neutrophils # 0.0 K/mm3 12/03/20 03:58 Lymphocytes # (Manual) 0.4 K/mm3 (1.2-5.4) L 12/03/20 03:58 Abs React Lymphs (Man) 0.0 K/mm3 12/03/20 03:58 Monocytes # (Manual) 0.8 K/mm3 (0.0-0.8) 12/03/20 03:58 Eosinophils # (Manual) 0.0 K/mm3 (0.0-0.4) 12/03/20 03:58 Basophils # (Manual) 0.0 K/mm3 (0.0-0.1) 12/03/20 03:58 Metamyelocytes # 0.0 K/mm3 12/03/20 03:58 Myelocytes # 0.0 K/mm3 12/03/20 03:58 Promyelocytes # 0.0 K/mm3 12/03/20 03:58 Blast Cells # 0.0 K/mm3 12/03/20 03:58 WBC Morphology Not Reportable 12/03/20 03:58 Hypersegmented Neuts Not Reportable 12/03/20 03:58 Hyposegmented Neuts Not Reportable 12/03/20 03:58 Hypogranular Neuts Not Reportable 12/03/20 03:58 Smudge Cells Not Reportable 12/03/20 03:58 Toxic Granulation Not Reportable 12/03/20 03:58 Toxic Vacuolation Not Reportable 12/03/20 03:58 Dohle Bodies Not Reportable 12/03/20 03:58 Pelger-Huet Anomaly Not Reportable 12/03/20 03:58 Collette Rods Not Reportable 12/03/20 03:58 Platelet Estimate Consistent w auto 12/03/20 03:58 Clumped Platelets Not Reportable 12/03/20 03:58 Plt Clumps, EDTA Not Reportable 12/03/20 03:58 Large Platelets Not Reportable 12/03/20 03:58 Giant Platelets Not Reportable 12/03/20 03:58 Platelet Satelliting Not Reportable 12/03/20 03:58 Plt Morphology Comment Not Reportable 12/03/20 03:58 RBC Morphology Not Reportable 12/03/20 03:58 Dimorphic RBCs Not Reportable 12/03/20 03:58 Polychromasia Not Reportable 12/03/20 03:58 Hypochromasia Not Reportable 12/03/20 03:58 Poikilocytosis Not Reportable 12/03/20 03:58 Anisocytosis 1+ 12/03/20 03:58 Microcytosis Not Reportable 12/03/20 03:58 Macrocytosis Not Reportable 12/03/20 03:58 Spherocytes Not Reportable 12/03/20 03:58 Pappenheimer Bodies Not Reportable 12/03/20 03:58 Sickle Cells Not Reportable 12/03/20 03:58 Target Cells Not Reportable 12/03/20 03:58 Tear Drop Cells Not Reportable 12/03/20 03:58 Ovalocytes Not Reportable 12/03/20 03:58 Stomatocytes 1+ 12/03/20 03:58 Helmet Cells Not Reportable 12/03/20 03:58 [place] Bodies Not Reportable 12/03/20 03:58 Apex Rings Not Reportable 12/03/20 03:58 Mark Cells Not Reportable 12/03/20 03:58 Bite Cells Not Reportable 12/03/20 03:58 Crenated Cell Not Reportable 12/03/20 03:58 Elliptocytes Not Reportable 12/03/20 03:58 Acanthocytes (Spur) Not Reportable 12/03/20 03:58 Rouleaux Not Reportable 12/03/20 03:58 Hemoglobin C Crystals Not Reportable 12/03/20 03:58 Schistocytes Not Reportable 12/03/20 03:58 Malaria parasites Not Reportable 12/03/20 03:58 Yoel Bodies Not Reportable 12/03/20 03:58 Hem Pathologist Commnt No 12/03/20 03:58 Sodium 139 mmol/L (137-145) 12/03/20 03:58 Potassium 3.5 mmol/L (3.6-5.0) L 12/03/20 03:58 Chloride 103.8 mmol/L (98-107) 12/03/20 03:58 Carbon Dioxide 26 mmol/L (22-30) 12/03/20 03:58 Anion Gap 13 mmol/L 12/03/20 03:58 BUN 8 mg/dL (9-20) L 12/03/20 03:58 Creatinine 0.9 mg/dL (0.8-1.3) 12/03/20 03:58 Estimated GFR > 60 ml/min 12/03/20 03:58 BUN/Creatinine Ratio 9 % 12/03/20 03:58 Glucose 111 mg/dL (75-100) H 12/03/20 03:58 Calcium 8.6 mg/dL (8.4-10.2) D 12/03/20 03:58 Phosphorus 3.10 mg/dL (2.5-4.5) 12/02/20 20:11 Magnesium 2.60 mg/dL (1.7-2.3) H 12/02/20 20:11 Total Bilirubin 0.90 mg/dL (0.1-1.2) 12/03/20 03:58 AST 30 units/L (5-40) 12/03/20 03:58 ALT 48 units/L (7-56) 12/03/20 03:58 Alkaline Phosphatase 67 units/L (35-129) 12/03/20 03:58 Total Protein 7.3 g/dL (6.3-8.2) 12/03/20 03:58 Albumin 4.3 g/dL (3.9-5) 12/03/20 03:58 Albumin/Globulin Ratio 1.4 % 12/03/20 03:58 Lipase 630 units/L (13-60) H 12/02/20 16:14 Plasma/Serum Alcohol < 0.01 % (0-0.07) 12/02/20 20:11 [place]/IV: Voiding Method Toilet Active Medications - Current Medications Current Medications: Generic Name Dose Route Start Last Admin Trade Name Freq PRN Reason Stop Dose Admin Acetaminophen 650 mg 12/02/20 22:00 12/03/20 18:55 Acetaminophen 325 Mg Tab PO 650 mg Q4H PRN Administration Pain MILD(1-3)/Fever >100.5/ALVARES Albuterol 2.5 mg 12/02/20 22:00 Albuterol 2.5 Mg/3 Ml Nebu IH Q4HRT PRN Shortness Of Breath Famotidine 20 mg 12/02/20 22:00 12/03/20 22:06 Famotidine 20 Mg/2 Ml Inj IV 20 mg BID KIARA Administration Heparin Sodium (Porcine) 5,000 unit 12/02/20 22:00 12/04/20 06:55 Heparin 5,000 Unit/1 Ml Vial SUB-Q 5,000 unit Q8HR KIARA Administration Hydromorphone HCl 0.5 mg 12/02/20 22:00 12/04/20 06:59 Hydromorphone 1 Mg/1 Ml Inj IV 0.5 mg Q3H PRN Administration Pain , Severe (7-10) Sodium Chloride 1,000 mls @ 100 mls/hr 12/02/20 22:00 12/04/20 06:56 Nacl 0.9% 1000 Ml IV 100 mls/hr DIRECT KIARA Administration Piperacillin Sod/Tazobactam Sod 4.5 gm in 100 mls @ 200 mls/hr 12/02/20 23:00 12/04/20 07:52 Zosyn/Ns 4.5gm/100ml IV Infused Q8H KIARA Infusion Protocol Thiamine HCl 100 mg/ Folic 1,011.2 mls @ 125 mls/hr 12/02/20 22:30 12/04/20 06:49 Acid 1 mg/ Multivitamins/ IV Infused Minerals 10 ml/ Sodium Q24H KIARA Infusion Chloride Morphine Sulfate 2 mg 12/02/20 22:00 Morphine 2 Mg/1 Ml Inj IV Q4H PRN Pain, Moderate (4-6) Ondansetron HCl 4 mg 12/02/20 22:00 12/03/20 17:30 Ondansetron 4 Mg/2 Ml Inj IV 4 mg Q8H PRN Administration Nausea And Vomiting Sodium Chloride 10 ml 12/02/20 22:00 12/03/20 22:10 Sodium Chloride 0.9% 10 Ml Flush Syringe IV 10 ml BID KIARA Administration Sodium Chloride 10 ml 12/02/20 22:00 Sodium Chloride 0.9% 10 Ml Flush Syringe IV PRN PRN LINE FLUSH
[2020-12-04] MEDS ORDERED: LORazepam 2 MG/ML VIAL IV PRN (08:30)
[2020-12-04] MEDS ORDERED: LORazepam 2 MG TAB PO PRN (09:00)
[2020-12-04 09:04] LABS: Hematocrit 36.2 % (35.5-45.6); Hemoglobin 12.1 gm/dl (11.8-15.2); Mean Corpuscular HGB Conc 33 % (32-34); Mean Corpuscular Volume 95 fl (84-94); Platelet Count 186 K/mm3 (140-440); Red Blood Count 3.82 M/mm3 (3.65-5.03); Red Cell Distribution Width 15.1 % (13.2-15.2)
[2020-12-04 10:04] LABS: Blood Urea Nitrogen 6 mg/dL (9-20); Calcium 8.3 mg/dL (8.4-10.2); Hemolysis Index 4
[2020-12-04 10:09] LABS: BUN/Creatinine Ratio 9
[2020-12-04] MEDS: ONDANSETRON 4 MG/2 ML INJ IV PRN (10:33)
[2020-12-04] MEDS: FAMOTIDINE 20 MG/2 ML INJ IV SCH ×2 (10:34→22:31)
[2020-12-04] MEDS: oxyCODONE /ACETAMINOPHEN 5-325MG TAB PO PRN ×2 (12:24→20:20)
--- NOTE | 2020-12-04 12:24 | Gastroenterology Progress Note ---
Assessment and Plan This is a 40 yo male with pmh of alcohol abuse and prior pancreatitis admitted with acute pancreatitis. # Acute pancreatitis - likely alcohol induced - no signs of gallstones on CT - abdominal US with no gallstones and normal CBD - initially mild elevation of liver enzymes, likely due to alcohol and trended down. - no signs of necrosis on CT - HD stable. - lipase trending down to 400s from 600s - CRP at 6 - Hct trending down with IVF. Rec - medical management for pancreatitis - IVF resuscitation - trial of clear liquids today. - pain control. - strongly advised on alcohol cessation - monitor for signs of alcohol withdrawal. - Patient Problems (1) Acute pancreatitis Current Visit: Yes Status: Acute Qualifiers: Pancreatitis type: alcohol induced Acute pancreatitis complication: unsp ecified Qualified Code(s): K85.20 - Alcohol induced acute pancreatitis without necrosis or infection Subjective Date of service: 12/04/20 Interval history: Patient states his back pain is better but continues to have cramping abdominal pain. No nausea/vomiting. Objective - Constitutional Vitals: Temp Pulse Resp BP Pulse Ox 98.3 F 64 18 116/83 98 12/04/20 05:52 12/04/20 05:52 12/04/20 05:52 12/04/20 05:52 12/04/20 05:52 General appearance: no acute distress - EENT Eyes: EOM intact ENT: hearing intact - Respiratory Respiratory effort: normal - Cardiovascular Rhythm: regular Heart Sounds: Present: S1 & S2 - Gastrointestinal General gastrointestinal: Present: soft, tender, non-distended, normal bowel sounds - Integumentary Integumentary: Present: clear, warm - Neurologic Neurological: alert and oriented x3 - Labs CBC & Chem 7: 12/04/20 08:50 12/04/20 08:50 Labs: Laboratory Results - last 24 hr 12/04/20 12/04/20 12/04/20 08:50 08:50 08:50 WBC 13.1 H RBC 3.82 Hgb 12.1 Hct 36.2 MCV 95 H MCH 32 MCHC 33 RDW 15.1 Plt Count 186 Sodium 135 L Potassium 3.4 L Chloride 101.5 Carbon Dioxide 20 L Anion Gap 17 BUN 6 L Creatinine 0.7 L Estimated GFR > 60 BUN/Creatinine Ratio 9 Glucose 75 Calcium 8.3 L Phosphorus 1.90 L D Magnesium 2.20 C-Reactive Protein 6.70 H Lipase 487 H
[2020-12-04] MEDS: LORazepam 2 MG/ML VIAL IV PRN (22:30)
[2020-12-04] MEDS: THIAMINE 100 MG, FOLIC ACID 1 MG, MULTIPLE VITAMIN INJ, ADULT 10 ML in SODIUM CHLORIDE ... IV SCH (23:22)
[2020-12-05] MEDS: LORazepam 2 MG/ML VIAL IV PRN (04:16)
[2020-12-05] MEDS: HEPARIN 5,000 UNIT/1 ML VIAL SUB-Q SCH ×2 (06:59→16:16)
[2020-12-05] MEDS: PIPERACIL/TAZOBACTA 4.5/NS 100 4.5 GM/100 ML VIAL IV SCH ×2 (08:50→16:16)
[2020-12-05] MEDS: FAMOTIDINE 20 MG/2 ML INJ IV SCH ×2 (08:51→14:08)
[2020-12-05] MEDS: oxyCODONE /ACETAMINOPHEN 5-325MG TAB PO PRN (11:18)
[2020-12-05 11:52] VITALS: BP 131/86
--- NOTE | 2020-12-05 14:53 | Discharge Summary ---
Providers - Providers Date of Admission: 12/02/20 22:00 Date of discharge: 12/05/20 Attending physician: BERE DOSS 12/03/20 10:55 Consult to Physician [CONS] Routine Comment: Consulting Provider: JUAQUIN SALINAS Physician Instructions: Reason For Exam: Acute pancreatitis Primary care physician: DRUM SANDER OFFBEARER Hospitalization Reason for admission: Abdominal epigastric pain radiating to back/acute pancreatitis Condition: Serious Pertinent studies: CT abdomen and pelvis Abdominal ultrasound Hospital course: 40-year-old male with history of alcohol abuse and recurrent pancreatitis was brought to the emergency room because of epigastric abdominal pain radiating to his back starting yesterday. Patient endorses frequent alcohol consumption and admits that his alcohol intake has increased in recent weeks due to a recent in the family. His last alcohol ingestion was 2 days ago. Patient has never required hospitalization for alcohol withdrawal/delirium tremens. No medications prior to arrival. Denies fever, chills, nausea, vomiting, diarrhea, black/bloody stools, syncope, chest pain, shortness of breath. , Work-up is consistent with acute on chronic pancreatitis, elevated liver function tests with acute hepatitis alcoholic, electrolyte imbalances Patient was appropriately managed, evaluated by GI, medications optimized Initially patient was n.p.o. related clear liquids and slowly advanced to full liquids and normal diet as tolerated Strongly advised to quit alcohol intake and seek alcohol rehabilitation, alcohol Anonymous Patient verbalized understanding and' Today he is comfortable no new complaints vital signs stable physical examination unremarkable tolerating full liquid diet GI cleared for discharge advised to advance diet to regular follow-up with GI in 1 week to 10 days Again advised to quit alcohol and tobacco use Stable at discharge Discharge diagnosis: --Acute pancreatitis Current Visit: Yes Status: Acute Well managed with IV fluids, n.p.o. status, IV Protonix Closely monitor transaminases and lipase levels GI evaluation and recommendations noted and appreciated If lipase level and symptoms are improving, may start clear liquids And advance as tolerated --SIRS without infectious process; Current Visit: Yes Status: Acute Tachycardia, leukocytosis, fever Treat underlying cause acute pancreatitis Closely monitor --Chronic alcohol abuse; Current Visit: Yes Status: Acute Thiamine folic acid, IV fluids, multivitamins Strongly advised to quit alcohol intake Recommend alcohol rehabilitation, and alcohol Anonymous support. --Alcoholic hepatitis; present on admission Current Visit: Yes Status: Acute Transaminases trending down GI following, closely monitor --Alcohol withdrawal symptoms; Patient does not have any withdrawal symptoms at this point. Closely monitor, initiate CIWA protocol as needed Again strongly advised to quit alcohol intake --DVT prophylaxis Current Visit: Yes Status: Acute Subcu heparin Stable at discharge Disposition: 30 STILL A PATIENT Final Discharge Diagnosis (Prints w/discharge instructions): Acute pancreatitis/improved. SIRS without infectious process. Chronic alcohol use/counseling done advised to quit. Alcoholic hepatitis. Alcohol withdrawal symptoms/resolved Time spent for discharge: 35 minutes Core Measure Documentation - Palliative Care Palliative Care/ Comfort Measures: Not Applicable - Core Measures Any of the following diagnoses?: none Exam - Constitutional Vitals: Temp Pulse Resp BP Pulse Ox 97.8 F 68 16 131/86 98 12/05/20 11:43 12/05/20 11:43 12/05/20 12:18 12/05/20 11:43 12/05/20 11:43 General appearance: Present: no acute distress, well-nourished - EENT Eyes: Present: PERRL, EOM intact - Neck Neck: Present: supple, normal ROM - Respiratory Respiratory effort: normal Respiratory: bilateral: diminished, negative: rales, rhonchi, wheezing - Cardiovascular Rhythm: regular Heart Sounds: Present: S1 & S2 - Extremities Extremities: no ischemia - Abdominal General gastrointestinal: Present: soft, non-tender, non-distended, normal bowel sounds - Integumentary Integumentary: Present: clear, warm - Musculoskeletal Musculoskeletal: strength equal bilaterally, generalized weakness - Psychiatric Psychiatric: appropriate mood/affect, cooperative - Neurologic Neurologic: CNII-XII intact, moves all extremities Plan Activity: no restrictions Diet: regular Additional Instructions: Advance her diet as tolerated. Advised to follow with GI physician in 10 days. If you have worsening symptoms contact MD or go to emergency room as needed. Strongly advised to quit alcohol intake. Advised to seek alcohol rehabilitation and advised to go to alcohol Anonymous support group Follow up with: NONA VANEGAS MD [Primary Care Provider] - 3-5 Days JUAQUIN SALINAS MD [Staff Physician] - 10 Days Prescriptions: RX: Folic Acid [Folvite] 1 mg PO DAILY #30 tablet Potassium Phos,Monobasic (Nf) [K-Phos Original (Nf)] 500 mg PO BID #10 tablet.taco RX: Famotidine [Pepcid] 20 mg PO BID #30 tablet RX: oxyCODONE /ACETAMINOPHEN [Percocet 5/325 mg] 1 tab PO BID PRN #10 tablet PRN Reason: Pain, Moderate (4-6) RX: Thiamine [Vitamin B-1] 100 mg PO QDAY #30 tablet Ondansetron [Zofran Odt] 4 mg PO Q8HR #20 tab.[email or web address]
[2020-12-05 15:03] LABS: Blood Urea Nitrogen 4 mg/dL (9-20); Calcium 9.3 mg/dL (8.4-10.2); Hemolysis Index 5
[2020-12-05 15:15] LABS: BUN/Creatinine Ratio 6
--- NOTE | 2020-12-05 15:20 | Gastroenterology Progress Note ---
Assessment and Plan This is a 40 yo male with pmh of alcohol abuse and prior pancreatitis admitted with acute pancreatitis. # Acute pancreatitis - likely alcohol induced - no signs of gallstones on CT - abdominal US with no gallstones and normal CBD - initially mild elevation of liver enzymes, likely due to alcohol and trended down. - no signs of necrosis on CT - HD stable. - Lipase trending down. - clinically improving. - tolerating liquids and not requiring IV pain meds. Rec - medical management for pancreatitis - ok for discharge once tolerating diet. - follow up in GI clinic outpatient. - strongly advised on alcohol cessation - will sign off. - Patient Problems (1) Acute pancreatitis Current Visit: Yes Status: Acute Qualifiers: Pancreatitis type: alcohol induced Acute pancreatitis complication: unspecified Qualified Code(s): K85.20 - Alcohol induced acute pancreatitis without necrosis or infection Subjective Date of service: 12/05/20 Interval history: Patient reports abdominal pain much improved. No nausea/vomiting. Not requiring IV morphine. tolerating liquids. Objective - Constitutional Vitals: Temp Pulse Resp BP Pulse Ox 97.8 F 68 16 131/86 98 12/05/20 11:43 12/05/20 11:43 12/05/20 12:18 12/05/20 11:43 12/05/20 11:43 General appearance: no acute distress - EENT Eyes: EOM intact ENT: hearing intact - Respiratory Respiratory effort: normal - Cardiovascular Rhythm: regular Heart Sounds: Present: S1 & S2 - Gastrointestinal General gastrointestinal: Present: soft, non-tender, non-distended - Integumentary Integumentary: Present: clear, warm - Neurologic Neurological: alert and oriented x3 - Labs CBC & Chem 7: 12/04/20 08:50 12/05/20 14:04 Labs: Laboratory Results - last 24 hr 12/05/20 14:04 Sodium 139 Potassium 3.1 L Chloride 102.1 Carbon Dioxide 26 Anion Gap 14 BUN 4 L Creatinine 0.7 L Estimated GFR > 60 BUN/Creatinine Ratio 6 Glucose 115 H Calcium 9.3 Phosphorus 1.40 L D
[2020-12-05] MEDS ORDERED: POTASSIUM PHOSPHATE 40 MMOL in SODIUM CHLORIDE 0.9% 500 ML 500 ML IV ONE (16:00)
[2020-12-05] MEDS ORDERED: FAMOTIDINE 20 MG TAB PO SCH (22:00)
[2020-12-06] MEDS ORDERED: MULTIVITAMINS ,THERAPEUTIC TAB PO SCH (10:00)
[2020-12-06] MEDS ORDERED: FOLIC ACID 1 MG TAB PO SCH (10:00)
[2020-12-06] MEDS ORDERED: THIAMINE 100 MG TAB PO SCH (10:00)
== END 2020-12-05 16:35 | disposition home or self-care (01) | DRG 439 ==
LOC: ED 14:02 → 3A 22:00 → 3B-SURG 12-03 22:06
PROVIDERS: ADMIT Hospitalist; ATTEND Internal Medicine
DX: K85.20 Alcohol induced acute pancreatitis without necrosis or infection (principal); R65.10 Systemic inflammatory response syndrome (SIRS) of non-infectious origin without acute organ dysfunction; R00.0 Tachycardia, unspecified; D72.829 Elevated white blood cell count, unspecified; F10.10 Alcohol abuse, uncomplicated; K70.10 Alcoholic hepatitis without ascites; Z71.3 Dietary counseling and surveillance
CPT/HCPCS: 36415; 74177; 76700; 80048; 80053; 80320; 83690; 83735; 84100; 85007; 85025; 85027; 86140; G0378; G0480; J1170; J1644; J2060; J2270; J2405; J2543; J3411; J7030; Q9967